=== PATIENT | female | born 1955 | race Caucasian/White ===

== ENCOUNTER 2022-04-12 15:40 | Emergency (ER) | payer OTHER, MEDICARE, BC | END 2022-04-12 18:18 | disposition home or self-care (01) | LOC: JP.ED 15:40 | DX: S80.11XA Contusion of right lower leg, initial encounter (principal); Z88.1 Allergy status to other antibiotic agents; Z79.899 Other long term (current) drug therapy; Z79.01 Long term (current) use of anticoagulants; V86.95XA Unspecified occupant of 3- or 4- wheeled all-terrain vehicle (ATV) injured in nontraffic accident, initial encounter; Y92.410 Unspecified street and highway as the place of occurrence of the external cause | CPT/HCPCS: 73590-RT; 99283 ==